=== PATIENT | female | born 1990 | race Caucasian/White ===

== ENCOUNTER 2018-07-17 23:42 | Inpatient (IN) | payer BC, MEDICAID ==
[~2018-07-17] VITALS: Ht 160 cm; Wt 72.6 kg
[~2018-07-17 23:42] MED LIST: CLON1TAB12 PO; DEXM2.5T2 PO; SERT-112 PO; TRAZ-213 PO
[2018-07-18] VITALS (12 sets, daily range): BP systolic 131–162; BP diastolic 75–100
[2018-07-18] MEDS ORDERED: SODIUM CHLORIDE 0.9% 1,000 ML IV ONE (00:25)
[2018-07-18] MEDS ORDERED: DILTIAZEM HCL 5MG/ML 5ML VIAL IV ONE ×2 (00:30→01:00)
[2018-07-18] MEDS ORDERED: ONDANSETRON HCL 4MG/2ML INJ IV ONE (01:00)
[2018-07-18] MEDS: LORAZEPAM 2MG/ML CPJ IV ONE ×2 (01:06→01:23)
[2018-07-18 01:08] LABS: BASOPHILS % 0.7 % (0.0-2.0); EOSINOPHILS % 0.6 % (0.0-5.0); HEMOGLOBIN. 13.8 g/dL (12.0-16.0); LYMPHOCYTES % 30.1 % (20.0-50.0); MEAN CORPUSCULAR HEMOGLOBIN 29.6 pg (28.0-32.0); MEAN CORPUSCULAR VOLUME 85.7 fL (81.0-99.0); MEAN PLATELET VOLUME 7.1 fl (7.4-10.4); NEUTROPHILS % 62.6 % (40.0-76.0); PLATELET 408 x1000/uL (130-400); RED BLOOD CELL COUNT 4.67 mill/uL (4.2-5.4); RED CELL DISTRIBUTION WIDTH 14.9 % (11.6-14.6)
[2018-07-18 01:15] LABS: CHLORIDE 106 mEq/L (98-107)
[2018-07-18 01:20] LABS: ETHANOL BLOOD < 10 mg/dL
[2018-07-18 01:21] LABS: D-DIMER 0.29 mg/L FEU (<0.50); PARTIAL THROMBOPLASTIN TIME 27.6 sec (23.4-31.0); PROTHROMBIN TIME 9.9 sec (9.1-11.1)
[2018-07-18 01:25] LABS: T4 FREE 5.87 ng/dL (0.76-1.46)
[2018-07-18] MEDS ORDERED: POTASSIUM CHLORIDE INJ 40 MEQ in DEXT 5% WATER 250 ML IV ONE (01:45)
[2018-07-18] MEDS: KCL 20MEQ/100ML PREMIX 100 ML IV SCH ×2 (02:11→04:00)
[2018-07-18] MEDS ORDERED: ACETAMINOPHEN 325MG TABLET PO PRN (02:15)
[2018-07-18] MEDS ORDERED: CLONIDINE 0.1MG TABLET PO PRN (02:15)
[2018-07-18] MEDS ORDERED: DOCUSATE SODIUM 100MG CAPSULE PO PRN (02:15)
[2018-07-18] MEDS ORDERED: MAGNESIUM/ALUMINUM HYDROXIDE/SIMETHICONE 30ML UDC PO PRN (02:15)
[2018-07-18] MEDS ORDERED: HYDROCODONE/ACETAMINOPHEN 5/325MG TABLET PO PRN (02:15)
[2018-07-18 03:04] LABS: *BARBITURATES SCREEN URINE NEGATIVE (NEGATIVE)
[2018-07-18 03:05] LABS: *AMPHETAMINES SCREEN URINE NEGATIVE (NEGATIVE); *COCAINE SCREEN URINE NEGATIVE (NEGATIVE); METHADONE URINE SCREEN NEGATIVE (NEGATIVE)
[2018-07-18 03:06] LABS: CANNABINOID URINE SCREEN NEGATIVE (NEGATIVE); OPIATES URINE SCREEN NEGATIVE (NEGATIVE)
[2018-07-18 03:07] LABS: *BENZODIAZEPINES SCREEN URINE PRESUMTIVE POSITIVE (NEGATIVE); PHENCYCLIDINE URINE SCREEN NEGATIVE (NEGATIVE)
[2018-07-18] MEDS ORDERED: FENTANYL CITRATE/PF 500 MCG in SODIUM CHLORIDE 0.9% 40 ML IV STA (05:01)
[2018-07-18] MEDS: METOPROLOL TARTRATE 25MG TABLET PO SCH ×2 (09:00→21:00)
[2018-07-18] MEDS ORDERED: DILTIAZEM HCL 125 MG in DEXT 5% WATER 100 ML IV SCH (09:07)
[2018-07-18] MEDS: DILTIAZEM HCL 125MG in DEXTROSE 5% WATER 125ML IV SCH ×2 (09:30→21:42)
[2018-07-18 12:57] LABS: T4 FREE 5.4 ng/dL (0.76-1.46)
[2018-07-18] MEDS: ONDANSETRON HCL 4MG/2ML INJ IV PRN ×2 (13:02→21:56)
[2018-07-18] MEDS: LORAZEPAM 2MG/ML CPJ IM PRN (13:02)
[2018-07-18] MEDS: MORPHINE SULFATE 4 MG/ML CPJ (NOT FOR IM USE) IV PRN ×2 (15:53→23:43)
[2018-07-18] MEDS ORDERED: AMIODARONE HCL 900 MG in DEXT 5% WATER 500 ML IV PRN (16:15)
[2018-07-18] MEDS ORDERED: LAM15 PO (19:55)
[2018-07-18] MEDS ORDERED: VENL150C2 PO (19:57)
[2018-07-18] MEDS ORDERED: FLUO20CA33 MT (19:58)
[2018-07-18] MEDS ORDERED: METH36TA MT (19:59)
[2018-07-19] VITALS (15 sets, daily range): BP systolic 93–168; BP diastolic 70–114
[2018-07-19] MEDS: LORAZEPAM 2MG/ML CPJ IM PRN ×2 (00:45→11:02)
[2018-07-19 07:35] LABS: CHLORIDE 108 mEq/L (98-107)
[2018-07-19] MEDS: ONDANSETRON HCL 4MG/2ML INJ IV PRN ×2 (08:47→14:52)
[2018-07-19] MEDS: MORPHINE SULFATE 4 MG/ML CPJ (NOT FOR IM USE) IV PRN ×2 (08:47→14:53)
[2018-07-19] MEDS ORDERED: DILTIAZEM HCL 120MG CAPSULE CD 24HR PO SCH (09:00)
[2018-07-19] MEDS: METOPROLOL TARTRATE 25MG TABLET PO SCH ×2 (09:00→21:00)
[2018-07-19] MEDS ORDERED: ZOLPIDEM TARTRATE 5MG TABLET PO PRN (16:15)
[2018-07-19] MEDS ORDERED: NITROGLYCERIN 0.4MG TABLET SL SL PRN (16:45)
[2018-07-19] MEDS: DILTIAZEM HCL 120MG CAPSULE CD 24HR PO SCH ×2 (17:08→21:00)
[2018-07-19] MEDS: KETOROLAC 30MG/ML VIAL IV PRN (17:12)
[2018-07-19 19:45] LABS: CREATINE KINASE 142 IU/L (26-192)
[2018-07-19 19:46] LABS: CREATINE KINASE MB FRACTION 1.5 ng/mL (0.5-3.6)
[2018-07-20] VITALS (10 sets, daily range): BP systolic 124–171; BP diastolic 47–117
[2018-07-20] MEDS: LORAZEPAM 2MG/ML CPJ IM PRN (01:01)
[2018-07-20] MEDS: KETOROLAC 30MG/ML VIAL IV PRN (01:22)
[2018-07-20] MEDS: METOPROLOL TARTRATE 25MG TABLET PO SCH (09:00)
[2018-07-20] MEDS: DILTIAZEM HCL 120MG CAPSULE CD 24HR PO SCH (09:00)
[2018-07-20] MEDS: DILTIAZEM HCL 125MG in DEXTROSE 5% WATER 125ML IV SCH (09:30)
[2018-07-20 09:47] LABS: HCG SCREEN NEGATIVE
== END 2018-07-20 14:45 | disposition home or self-care (01) | DRG 201 ==
LOC: ER 07-18 00:48 → 5EST 07-18 01:35 → SUPCPDRO 07-18 02:12 → ENRESERV 07-18 08:34 → ER 07-18 10:35 → 5EST 07-18 14:00
PROVIDERS: ADMIT Hospitalist; ATTEND Hospitalist
DX: I47.1 Supraventricular tachycardia (principal); D68.0 Von Willebrand disease; I10 Essential (primary) hypertension; F41.9 Anxiety disorder, unspecified; E78.5 Hyperlipidemia, unspecified; F43.10 Post-traumatic stress disorder, unspecified; G40.909 Epilepsy, unspecified, not intractable, without status epilepticus; Z87.820 Personal history of traumatic brain injury; Z91.410 Personal history of adult physical and sexual abuse; Z79.899 Other long term (current) drug therapy; Z88.8 Allergy status to other drugs, medicaments and biological substances
CPT/HCPCS: 36415; 71045; 80048; 80061; 80305; 80320; 82533; 82550; 82553; 83036; 83520; 83835; 83880; 84439; 84442; 84443; 84481; 84484; 84703; 85379; 93005; 93306; 93970; 96374; 96375; 99291; C1893; J0282; J1885; J2060; J2270; J2405; J3010; J3480; J3490; J7030; J7050; J7060; G0480

== ENCOUNTER 2018-12-16 18:27 | Emergency (ER) | payer MEDICAID ==
[~2018-12-16] VITALS: Ht 167.6 cm; Wt 78.4 kg
[~2018-12-16 18:27] MED LIST changes: -DEXM2.5T2 PO; +FLUO20CA33 MT; +LAM15 PO; +METH36TA MT; -SERT-112 PO; -TRAZ-213 PO; +VENL150C2 PO
[2018-12-16] MEDS ORDERED: SODIUM CHLORIDE 0.9% 1,000 ML IV ONE (18:37)
[2018-12-16] MEDS ORDERED: LORAZEPAM 2MG/ML CPJ ONE ×2 (18:45→18:51)
[2018-12-16] MEDS ORDERED: MIDAZOLAM HCL 2 MG/2 ML VIAL ONE (18:46)
[2018-12-16] MEDS ORDERED: DIPHENHYDRAMINE 50MG/ML VIAL IV ONE (20:00)
[2018-12-16] MEDS ORDERED: ONDANSETRON HCL 4MG/2ML INJ IV ONE (20:00)
[2018-12-16] MEDS ORDERED: METOCLOPRAMIDE HCL 10MG/2ML VIAL IV ONE (20:00)
[2018-12-16 20:05] LABS: BASOPHILS % 0.4 % (0.0-2.0); EOSINOPHILS % 0.5 % (0.0-5.0); HEMATOCRIT. 37.7 % (36.0-48.0); HEMOGLOBIN. 12.7 g/dL (12.0-16.0); LYMPHOCYTES % 25.1 % (20.0-50.0); MEAN CORPUSCULAR VOLUME 85.9 fL (81.0-99.0); MEAN PLATELET VOLUME 7.1 fl (7.4-10.4); MONOCYTES % 5.9 % (2.0-8.0); NEUTROPHILS % 68.1 % (40.0-76.0); PLATELET 365 x1000/uL (130-400); RED BLOOD CELL COUNT 4.38 mill/uL (4.2-5.4); RED CELL DISTRIBUTION WIDTH 15.1 % (11.6-14.6)
[2018-12-16 20:10] LABS: CHLORIDE 106 mEq/L (98-107); PROTHROMBIN TIME 10.3 sec (9.6-11.0)
[2018-12-16 20:13] LABS: ETHANOL BLOOD < 10 mg/dL
[2018-12-16 20:16] LABS: LDL CHOLESTEROL 103 mg/dL (5-100)
[2018-12-16 20:16] LABS: CLARITY URINE CLEAR (CLEAR); COLOR URINE YELLOW (YELLOW); KETONES URINE NEGATIVE (NEGATIVE); LEUKOCYTE ESTERASE URINE 1+ (NEGATIVE); NITRITE URINE NEGATIVE (NEGATIVE); OCCULT BLOOD URINE NEGATIVE (NEGATIVE); PH URINE 6.5 (4.5-8.0); PROTEIN URINE NEGATIVE (NEGATIVE); SPECIFIC GRAVITY URINE 1.015 (1.005-1.030); UROBILINOGEN URINE 0.2 E.U./dL (0.2-1.0)
[2018-12-16 20:30] LABS: *AMPHETAMINES SCREEN URINE NEGATIVE (NEGATIVE); *BARBITURATES SCREEN URINE NEGATIVE (NEGATIVE); *BENZODIAZEPINES SCREEN URINE NEGATIVE (NEGATIVE); *COCAINE SCREEN URINE NEGATIVE (NEGATIVE); METHADONE URINE SCREEN NEGATIVE (NEGATIVE); OPIATES URINE SCREEN NEGATIVE (NEGATIVE); PHENCYCLIDINE URINE SCREEN NEGATIVE (NEGATIVE)
[2018-12-16] MEDS ORDERED: POTASSIUM CHLORIDE 20MEQ TABLET SR PO NR (20:30)
[2018-12-16] MEDS ORDERED: ASPIRIN 325MG EC TABLET PO ONE (20:30)
[2018-12-16 20:31] LABS: CANNABINOID URINE SCREEN NEGATIVE (NEGATIVE)
[2018-12-16] MEDS ORDERED: IOHEXOL-350 100 ML BOTTLE ONE (21:44)
[2018-12-16] MEDS ORDERED: ASPIRIN 300MG SUPP PR ONE (22:15)
[2018-12-16] MEDS ORDERED: POTASSIUM CHLORIDE INJ 40 MEQ in DEXT 5% WATER 250 ML IV ONE (22:15)
[2018-12-16 22:44] VITALS: BP 152/99
[2018-12-16] MEDS ORDERED: LISINOPRIL 10MG TABLET PO SCH (23:00)
[2018-12-16] MEDS ORDERED: ENOXAPARIN 40MG/0.4ML SYR SUBCUT SCH (23:00)
[2018-12-16] MEDS ORDERED: LORAZEPAM 2MG/ML CPJ IV PRN (23:00)
[2018-12-16] MEDS ORDERED: HYDROCODONE/ACETAMINOPHEN 5/325MG TABLET PO PRN (23:00)
[2018-12-16] MEDS ORDERED: CLONIDINE 0.1MG TABLET PO PRN (23:00)
[2018-12-16] MEDS ORDERED: MAGNESIUM/ALUMINUM HYDROXIDE/SIMETHICONE 30ML UDC PO PRN (23:00)
[2018-12-16] MEDS ORDERED: ONDANSETRON HCL 4MG/2ML INJ IV PRN (23:00)
[2018-12-16] MEDS ORDERED: IPRATROPIUM/ALBUTEROL 0.5-3(2.5)MG/3ML NEB INH PRN (23:00)
[2018-12-16] MEDS ORDERED: DOCUSATE SODIUM 100MG CAPSULE PO PRN (23:00)
[2018-12-16] MEDS ORDERED: ACETAMINOPHEN 325MG TABLET PO PRN (23:00)
[2018-12-17] MEDS ORDERED: ASPIRIN 81MG EC TABLET PO SCH (09:00)
[2018-12-17] MEDS ORDERED: LEVETIRACETAM 500MG/5ML CUP PO SCH (09:00)
== END 2018-12-16 23:20 | disposition left against medical advice (07) ==
LOC: ER 18:27 → EDBEDREQ 21:39 → EDBEDREQTM 21:39 → CANRESERV 22:35 → ENRESERV 22:35 → CANBEDREQ 23:07 → ER 23:20
DX: G81.94 Hemiplegia, unspecified affecting left nondominant side (principal); R56.9 Unspecified convulsions; I10 Essential (primary) hypertension
CPT/HCPCS: 36415; 70450; 70496; 70498; 71045; 80053; 80305; 80320; 81003; 82962; 83605; 83721; 84484; 85025; 85610; 93005; 96374; 96375; 99284; J1200; J2060; J2405; J2765; J3480; J7030; J7060; Q9967; J2250; G0480